=== PATIENT | female | born 1955 | race American Indian/Alaskan Native ===

== ENCOUNTER 2016-08-29 08:52 | Outpatient (CLI) | payer OTHER ==
--- NOTE | 2016-08-29 15:57 | Mammography Report ---
BILATERAL DIGITAL SCREENING MAMMOGRAM with CAD: 08/29/16 08:52:00 CLINICAL: Routine screening.Previous right benign biopsy. COMPARISON:None available. FINDINGS: The breasts are heterogeneously dense, which may obscure small masses.Mild right outer postsurgical scar. No mass, suspicious architectural distortion or suspicious calcifications. IMPRESSION: No mammographic evidence of malignancy. BI-RADS CATEGORY: 2 - - Benign RECOMMENDATION: Routine mammographic screening in one year. COMMENT: Patient follow-up letters are generated by our [employer] application.
== END 2016-08-29 08:53 | disposition home or self-care (01) ==
LOC: SPVWC 08:52
PROVIDERS: ATTEND Internal Medicine
DX: Z12.31 Encounter for screening mammogram for malignant neoplasm of breast (principal)
CPT/HCPCS: 77067; G0202

== ENCOUNTER 2017-10-21 09:07 | Outpatient (CLI) | payer OTHER ==
--- NOTE | 2017-10-21 13:36 | Mammography Report ---
BILATERAL MAMMOGRAM: FINDINGS: The breast tissue is heterogeneously dense, which could obscure detection of small masses (approximately 50%-75% glandular). No mass, distortion, suspicious calcification, or skin change is seen. No significant change when compared to her prior exam in August 2016. CAD was utilized. IMPRESSION: Negative mammogram. There is no mammographic evidence of malignancy. RECOMMENDATION: Follow-up per ACS guidelines. BI-RADS CATEGORY: 1 = Negative ACR BI-RADS MAMMOGRAPHIC CODES: 0 = Needs additional imaging evaluation; 1 = Negative; 2 = Benign; 3 = Probably benign; 4 = Suspicious; 5 = Malignant; 6 = Known biopsy-proven malignancy COMMENT: 1. Dense breast tissue, i.e., adenosis, fibrocystic changes, etc., may obscure an underlying neoplasm. 2. Approximately 10% of cancers are not detected with mammography. 3. A negative mammography report should not delay biopsy if a clinically suspicious mass is present. COMMENT: Patient follow-up letters are generated in [employer].
== END 2017-10-21 09:08 | disposition home or self-care (01) ==
LOC: SPVWC 09:07
PROVIDERS: ATTEND Internal Medicine
DX: Z12.31 Encounter for screening mammogram for malignant neoplasm of breast (principal)
CPT/HCPCS: 77067

== ENCOUNTER 2018-12-01 08:19 | Outpatient (CLI) | payer OTHER ==
--- NOTE | 2018-12-01 10:14 | Mammography Report ---
BILATERAL DIGITAL SCREENING MAMMOGRAM with CAD: 12/01/18 08:19:00 CLINICAL: Routine screening.History of a benign right surgical biopsy. COMPARISON:10/21/17 and 08/29/16 FINDINGS: The breasts are heterogeneously dense, which may obscure small masses. A new right inner asymmetry on the CC view requires additional imaging. A right axillary lymph node has also enlarged and requires additional evaluation. No architectural distortion or suspicious calcifications.The left breast is negative. IMPRESSION: Right asymmetry and axillary lymph node requiring further workup. BI-RADS CATEGORY: 0 -- Additional Imaging Evaluation Required RECOMMENDATION: Recall for right lateralmedial , spot magnification CC views and right breast and axillary ultrasound. COMMENT: 1. Dense breast tissue, i.e., adenosis, fibrocystic changes, etc., may obscure an underlying neoplasm. 2. Approximately 10% of cancers are not detected with mammography. 3. A negative mammography report should not delay biopsy if a clinically suspicious mass is present. COMMENT: Patient follow-up letters are generated via our [employer] application.
== END 2018-12-01 08:20 | disposition home or self-care (01) ==
LOC: SPVWC 08:19
PROVIDERS: ATTEND Internal Medicine
DX: Z12.31 Encounter for screening mammogram for malignant neoplasm of breast (principal)
CPT/HCPCS: 77067

== ENCOUNTER 2020-03-14 08:28 | Outpatient (CLI) | payer OTHER ==
--- NOTE | 2020-03-14 10:22 | Mammography Report ---
DIGITAL LEFT DIAGNOSTIC MAMMOGRAM WITH CAD, WITHOUT TOMOSYNTHESIS 03/14/2020 INDICATION: Post ultrasound-guided biopsy TECHNIQUE: Digital left mammographic imaging was performed. This examination was interpreted with the benefit of Computer-aided Detection analysis. COMPARISON: Screening mammogram 02/07/2020 Breast Density: The breasts are heterogeneously dense, which may obscure small masses. FINDINGS: Nodule is no longer seen in the central lateral left breast. Clip is noted approximately 1 cm medial to the expected site. IMPRESSION: Evidence of satisfactory sampling of targeted lesion with appropriate clip placement Follow up recommendation: Per biopsy results Post biopsy imaging. A "normal" or negative report should not discourage follow up or biopsy of a clinically significant f inding. A written summary of these findings will be mailed to the patient. The patient will be entered into a mammography reporting system which will generate a reminder letter for the patient's next appointmen t at the appropriate interval. According to the [employer], yearly mammograms are recommended starting at age 40 and continuing as long as a woman is in good health. Breast MRI is recommended for women with an abdulaziz roximately 20-25% or greater lifetime risk of breast cancer, including women with a strong family his tory of breast or ovarian cancer and women who have been treated for Hodgkin's disease. Signer Name: Pascual Torres MD Signed: 03/14/2020 10:17 AM Workstation Name: [id number]
--- NOTE | 2020-03-14 14:46 | Ultrasound Report ---
ULTRASOUND-GUIDED LEFT BREAST VACUUM-ASSISTED BIOPSY INDICATION: Complex cyst COMPARISON: Left breast ultrasound 02/28/2020, bilateral mammogram 02/07/2020 CONSENT: Procedure was discussed at length in advance with the patient. Possible risks and benefits w ere discussed including the possibility of bleeding. Postbiopsy care was discussed. Opportunity for q uestions was provided. Patient is not on anticoagulant therapy and reports no pertinent allergies. PROCEDURE: Timeout was performed. The complex cyst at 3:00 was targeted sonographically. Using asepti c technique and under local anesthesia, with real-time sonographic guidance, the area of interest was biopsied. Multiple specimens were obtained with a mammotome 13-gauge vacuum-assisted biopsy device a nd sent to pathology for analysis. The cyst was completely collapsed at the end of the procedure. A m etallic clip was placed at the end of the procedure. Site was secured and the patient was sent for po st biopsy mammogram. Patient tolerated the procedure well and left the department in good condition. IMPRESSION: Successful ultrasound-guided left breast biopsy Signer Name: Pascual Torres MD Signed: 03/14/2020 2:42 PM Workstation Name: [id number]
== END 2020-03-14 08:29 | disposition home or self-care (01) ==
LOC: SPVWC 08:28
PROVIDERS: ATTEND Internal Medicine
DX: N60.02 Solitary cyst of left breast (principal); N63.23 Unspecified lump in the left breast, lower outer quadrant
CPT/HCPCS: 88304; 88305

== ENCOUNTER 2021-03-07 08:31 | Outpatient (CLI) | payer OTHER ==
--- NOTE | 2021-03-07 10:58 | Mammography Report ---
DEXA BONE DENSITY SCAN INDICATION: SCREENING FOR OSTEOPOROSIS Z13.820. COMPARISON: None available. LUMBAR SPINE (L1-L4): Bone mineral density (BMD) is 1.061 g/cm2. T-score is -0.8 (standard deviations of Young Adult mean). Z-score is 1.1 (standard deviations of Age Matched mean). LEFT FEMORAL NECK: Bone mineral density (BMD) is 0.748 g/cm2. T-score is -1.4 (standard deviations of Young Adult mean). Z-score is -0.2 (standard deviations of Age Matched mean). IMPRESSION: 1. WHO Classification: Osteopenia. Fracture Risk: Increased. Signer Name: Jose Neely MD Signed: 03/07/2021 10:54 AM Workstation Name: [id number]
--- NOTE | 2021-03-07 11:01 | Mammography Report ---
DIGITAL SCREENING MAMMOGRAM WITH CAD, 03/07/2021 CLINICAL INFORMATION / INDICATION: Routine screening mammography. SCREENING MAMMO Z12.31 TECHNIQUE: Digital bilateral 2D mammography was obtained in the craniocaudal and mediolateral obliqu e projections. This examination was interpreted with the benefit of Computer-Aided Detection analysis . COMPARISON: 02/07/2020, 10/21/2017. FINDINGS: Breast Density: There are scattered areas of fibroglandular density. No dominant mass, suspicious calcifications, or architectural distortion in either breast. Postbiopsy change bilaterally. IMPRESSION: No mammographic evidence of malignancy. Follow up recommendation: Routine yearly BI-RADS Category 2: Benign. A "normal" or negative report should not discourage follow up or biopsy of a clinically significant f inding. A written summary of these findings will be mailed to the patient. The patient will be entered into a mammography reporting system which will generate a reminder letter for the patient's next appointmen t at the appropriate interval. The [employer] recommends yearly mammograms starting at age 40 and continuing as l [place] as a woman is in good health. Breast MRI is recommended for women with an approximate 20-25% or greater lifetime risk of breast cancer, including women with a strong family history of breast or ova denisha cancer or who have been treated for Hodgkin's disease. Signer Name: Jose Neely MD Signed: 03/07/2021 10:57 AM Workstation Name: [id number]
--- NOTE | 2021-03-07 16:58 | Ultrasound Report ---
ULTRASOUND RIGHT LOWER QUADRANT SOFT TISSUE INDICATION / CLINICAL INFORMATION: R19.03 RIGHT LOWER QUADRANT ABDOMINAL SWELLING, MASS AND LUMP. COMPARISON: None available. FINDINGS: Ultrasound of the palpable area in the right lower quadrant demonstrates no soft tissue mass, cyst, o r fluid collection. Signer Name: Rossy Hoover MD Signed: 03/07/2021 4:54 PM Workstation Name: [id number]
== END 2021-03-07 08:32 | disposition home or self-care (01) ==
LOC: SPVWC 08:31
PROVIDERS: ATTEND Internal Medicine
DX: Z12.31 Encounter for screening mammogram for malignant neoplasm of breast (principal); Z13.820 Encounter for screening for osteoporosis; R19.03 Right lower quadrant abdominal swelling, mass and lump
CPT/HCPCS: 76705; 76999; 77067; 77080